=== PATIENT | male | born 1995 | race Caucasian/White ===

== ENCOUNTER 2019-02-02 22:56 | Emergency (ER) | payer SELFPAY ==
[~2019-02-02] VITALS: Ht 180.3 cm; Wt 70.5 kg
[~2019-02-02 22:56] MED LIST: NORCO 325 MG-51 TAB PO
[2019-02-02 22:59] VITALS: BP 131/77; TEMP 97.8
[2019-02-03 00:33] VITALS: PULSE 71
== END 2019-02-03 00:33 | disposition home or self-care (01) ==
LOC: COL.ER 22:56
DX: S60.221A Contusion of right hand, initial encounter (principal); Z87.891 Personal history of nicotine dependence; W22.8XXA Striking against or struck by other objects, initial encounter
CPT/HCPCS: Q4021